=== PATIENT | male | born 1960 | race Caucasian/White ===

== ENCOUNTER 2019-10-18 16:12 | Outpatient (CLI) | payer BC ==
--- NOTE | 2019-10-18 16:48 | RAD ---
LEFT FOOT THREE VIEWS: 10/18/19 HISTORY: Left foot pain. Injury one week ago. FINDINGS/IMPRESSION: No acute fracture or dislocation is identified. POS: [facility]
== END 2019-10-18 16:13 | disposition home or self-care (01) ==
LOC: BICRAD 16:12
PROVIDERS: ATTEND Family Medicine
DX: M79.672 Pain in left foot (principal)

== ENCOUNTER 2023-02-01 12:30 | Outpatient (CLI) | payer BC | END 2023-02-01 12:31 | disposition home or self-care (01) | LOC: PET 12:30 | PROVIDERS: ATTEND Psychiatry & Neurology Neurology | DX: R41.3 Other amnesia (principal) | CPT/HCPCS: 78803; A9552 ==